=== PATIENT | female | born 1975 | race Caucasian/White ===

== ENCOUNTER 2016-07-24 08:28 | Emergency (ER) | payer MEDICARE, MEDICAID ==
[2016-07-24 08:49] VITALS: BP 138/92
--- NOTE | 2016-07-24 12:29 | UC ---
Lower Extremity/Ankle HPI - History of Current Complaint Chief Complaint: UCLowerExtremity Stated Complaint: KNEE COMPLAINT Time Seen by Provider: 07/24/16 11:27 Hx Last Menstrual Period: 07/01/16 - Allergies/Home Medications Allergies/Adverse Reactions: Allergies Allergy/AdvReac Type Severity Reaction Status Date / Time Penicillins Allergy Severe Airway Verified 07/24/16 08:50 Obstruction Azithromycin [From Zithromax] Allergy Nausea And Verified 07/24/16 08:50 Vomiting Lactose Intolerance (GI) Allergy Nausea And Verified 07/24/16 08:50 Vomiting Home Medications: Home Medications NK [No Home Medications Reported] 07/24/16 [History Confirmed 07/24/16] PMH/Surg Hx/FS Hx/Imm Hx Endocrine History Of: Denies: Diabetes, Thyroid Disease Cardiovascular History Of: Denies: Cardiac Disorders, Hypertension Respiratory History Of: Denies: COPD, Asthma GI/ History Of: Denies: Ulcer Neurological History Of: Reports: Migraine - ALLERGY INDUCED Psychological History Of: Reports: Depression - HX- PRIOR TO STROKE - Surgical History Surgical History: Yes Surgery Procedure, Year, and Place: TUBAL-2009. TUBES IN EARS-2014 - Family History Known Family History: Positive: None - Social History Alcohol Use: None Substance Use Type: None Smoking Status (MU): Current Every Day Smoker Type: Cigarettes Amount Used/How Often: 1 PPD Length of Time of Smoking/Using Tobacco: 25+ YEARS Have You Smoked in the Last Year: Yes When Did the Patient Quit Smoking/Using Tobacco: trying to quit currently Household Exposure Type: Cigarettes Physical Exam Vital Signs: Initial Vital Signs Temp 97.9 F 07/24/16 08:35 Pulse 92 07/24/16 08:35 Resp 20 07/24/16 08:35 BP 138/92 07/24/16 08:35 Pulse Ox 100 07/24/16 08:35
--- NOTE | 2016-07-24 12:31 | UC ---
Progress - Progress Note Progress Note: Patient came in today for chronic right leg pain. Due to an unusual number of medical emergencies that keep bumping the patient behind, the patient had a long wait and eventually left without me seeing her. I did go into see her, but after a few questions, a nurse came out to get me for a patient who possibly was having a stroke. When that patient was addressed, I heard from a nurse that the patient just could not stay any longer and left.
== END 2016-07-24 11:46 | disposition left against medical advice (07) ==
LOC: UCEAST 08:28
DX: M79.604 Pain in right leg (principal); G89.29 Other chronic pain; Z53.09 Procedure and treatment not carried out because of other contraindication

== ENCOUNTER 2016-07-25 07:06 | Emergency (ER) | payer MEDICARE, MEDICAID ==
[2016-07-25 07:18] VITALS: BP 138/75
--- NOTE | 2016-07-25 07:30 | UC ---
Knee Pain HPI - HPI Summary HPI Summary: PT HAS HAD RIGHT KNEE PAIN FOR YEARS. HAS NEVER SOUGHT MEDICAL ATTENTION FOR IT. NO PCP. STATES IT HAS BEEN WORSENING OVER THE PAST YEAR. HURTS TO WALK. PAIN IS MOSTLY MEDIAL AND POSTERIOR. NO CALF PAIN. NO NUMBNESS OR TINGLING. - History of Current Complaint Chief Complaint: UCLowerExtremity Stated Complaint: KNEE COMPLAINT Time Seen by Provider: 07/25/16 07:20 Hx Obtained From: Patient Hx Last Menstrual Period: 07/01/16 Onset/Duration: Gradual Onset - OVER YEARS, Still Present Severity Initially: Moderate Severity Currently: Moderate Pain Intensity: 5 Pain Scale Used: 0-10 Numeric Character: Sharp, Aching Aggravating Factor(s): Movement, Weight Bearing Alleviating Factor(s): Rest, Position Associated Signs And Symptoms: Positive: Swelling - Allergies/Home Medications Allergies/Adverse Reactions: Allergies Allergy/AdvReac Type Severity Reaction Status Date / Time Penicillins Allergy Severe Airway Verified 07/24/16 08:50 Obstruction Azithromycin [From Zithromax] Allergy Nausea And Verified 07/24/16 08:50 Vomiting Lactose Intolerance (GI) Allergy Nausea And Verified 07/24/16 08:50 Vomiting Home Medications: Home Medications Ibuprofen [Advil] 400 mg PO 07/25/16 [History] PMH/Surg Hx/FS Hx/Imm Hx Endocrine History Of: Denies: Diabetes, Thyroid Disease Cardiovascular History Of: Denies: Cardiac Disorders, Hypertension Respiratory History Of: Denies: COPD, Asthma GI/ History Of: Denies: Ulcer Neurological History Of: Reports: Migraine - ALLERGY INDUCED Psychological History Of: Reports: Depression - HX- PRIOR TO STROKE - Surgical History Surgical History: Yes Surgery Procedure, Year, and Place: TUBAL-2009. TUBES IN EARS-2014 - Family History Known Family History: Positive: Unknown - ADOPTED - Social History Alcohol Use: None Substance Use Type: None Smoking Status (MU): Current Every Day Smoker Type: Cigarettes Amount Used/How Often: 1 PPD Length of Time of Smoking/Using Tobacco: 25+ YEARS Have You Smoked in the Last Year: Yes When Did the Patient Quit Smoking/Using Tobacco: trying to quit currently Household Exposure Type: Cigarettes Review of Systems Constitutional: Negative Skin: Negative Respiratory: Negative Cardiovascular: Negative Gastrointestinal: Negative Musculoskeletal: Arthralgia, Decreased ROM, Edema All Other Systems Reviewed And Are Negative: Yes Physical Exam Triage Information Reviewed: Yes Appearance: Well-Appearing, No Pain Distress, Well-Nourished Vital Signs: Initial Vital Signs Temp 98.6 F 07/25/16 07:14 Pulse 83 07/25/16 07:14 Resp 18 07/25/16 07:14 BP 138/75 07/25/16 07:14 Pulse Ox 97 07/25/16 07:14 Vital Signs Reviewed: Yes Eyes: Positive: Conjunctiva Clear ENT: Positive: Hearing grossly normal Neck: Positive: Supple Respiratory: Positive: No respiratory distress, No accessory muscle use Cardiovascular: Positive: Pulses Normal Abdomen Description: Positive: Soft Musculoskeletal: Positive: ROM Limited @ - RIGHT KNEE, Edema @ - MILD EDEMA RIGHT KNEE, Other: - DIFFUSELY TENDER OVER RIGHT KNEE. MCL AND LCL INTACT TO STRESS TESTING. NEG LACHMANS. NEG DRAWERS SIGNS. NEG MCMURRAYS. DECREASED ROM ( FLEXION AND EXTENSION). NEG HOMANS. NO CALF TENDERNESS Neurological: Positive: Alert Psychological: Positive: Age Appropriate Behavior Skin: Negative: rashes Diagnostics - Radiology RIGHT KNEE XRAY Xray Interpretation: Positive (See Comments) - MINOR OSTEOARTHRITIS Radiology Interpretation Completed By: Radiologist Knee Pain Course/Dx - Course Course Of Treatment: XRAY GROSSLY UNREMARKABLE. KNEE IMMOBILIZER AND MATI DECLINED BY PT. FOLLOW-UP ORTHO. - Differential Dx/Diagnosis Differential Diagnosis/HQI/PQRI: Bursitis, Internal Derangement Of Knee, Patellofemoral Syndrome, Strain Provider Diagnoses: RIGHT KNEE PAIN/OSTEOARTHRITIS Discharge - Discharge Plan Condition: Stable Disposition: HOME Patient Education Materials: Knee Pain (ED) Referrals: Pancho Morales MD [Medical Doctor] - As Soon As Possible Additional Instructions: XRAY TODAY SHOWS SOME MILD OSTEOARTHRITIS. KNEE SLEEVE AND OTC MEDS NEEDED FOR COMFORT. SUSPECTED INTERNAL KNEE INJURY: The examiner of your injured knee suspects an internal injury to the cartilage or internal ligaments. This must be further investigated by an university extension specialist. The knee should be protected, ice packed, and elevated while awaiting your follow-up exam by the orthopedist. If there is severe swelling, severe pain, or any new symptoms while awaiting your exam, you should call the orthopedist. (If he/she is unavailable, call us or return for re-examination.) CALL THE NUMBER BELOW FOR ASSISTANCE IN ESTABLISHING WITH A PCP An additional resource available to assist in finding the appropriate physician for your health care needs is the [facility] ([place]). You may contact them by calling [phone].
--- NOTE | 2016-07-25 07:57 | RAD ---
INDICATION: Chronic right knee pain none COMPARISON: None TECHNIQUE: AP, lateral, tunnel, and sunrise were obtained. FINDINGS: There is minor tricompartmental spurring. There is minor patellofemoral joint space narrowing. There are no additional significant osteoarthritic findings. There are no acute bony findings. There is no significant joint effusion. IMPRESSION: MINOR OSTEOARTHRITIS. NO ACUTE FINDINGS.
== END 2016-07-25 08:30 | disposition home or self-care (01) ==
LOC: UCEAST 07:06
DX: M17.11 Unilateral primary osteoarthritis, right knee (principal); M25.561 Pain in right knee; F17.210 Nicotine dependence, cigarettes, uncomplicated
CPT/HCPCS: 99211; G0463

== ENCOUNTER 2016-07-28 08:17 | Emergency (ER) | payer MEDICARE, MEDICAID ==
[2016-07-28 08:28] VITALS: BP 146/71
--- NOTE | 2016-07-28 08:42 | UC ---
Respiratory Complaint HPI - HPI Summary HPI Summary: Cough, Chest COngestion, Chest Tightness, Subjective Fever, feels SOB, I get this 4 times a year - History of Current Complaint Chief Complaint: UCRespiratory Stated Complaint: CHEST CONGESTION Time Seen by Provider: 07/28/16 08:45 Hx Obtained From: Patient Hx Last Menstrual Period: 07/28/16 ?: No Onset/Duration: Sudden Onset, Lasting Days - 1, Still Present Timing: Constant Severity Initially: Moderate Severity Currently: Moderate Pain Intensity: 7 Pain Scale Used: 0-10 Numeric Character: Cough: Nonproductive Aggravating Factors: Exertion, Deep Breaths, Recumbent Position Alleviating Factors: Nothing - has not tried anything, uses an inhaler when she is prescribed one Associated Signs And Symptoms: Positive: Dyspnea, Fever - subjective, Pleuritic Chest Pain, URI - Allergies/Home Medications Allergies/Adverse Reactions: Allergies Allergy/AdvReac Type Severity Reaction Status Date / Time Penicillins Allergy Severe Airway Verified 07/24/16 08:50 Obstruction Azithromycin [From Zithromax] Allergy Nausea And Verified 07/24/16 08:50 Vomiting Lactose Intolerance (GI) Allergy Nausea And Verified 07/24/16 08:50 Vomiting Home Medications: Home Medications [id number] [Excedrin Extra Strength 250-250-65 mg] 2 tab PO Q6H 07/28/16 [History Confirmed 07/28/16] PMH/Surg Hx/FS Hx/Imm Hx Previously Healthy: No Endocrine History Of: Denies: Diabetes, Thyroid Disease Cardiovascular History Of: Denies: Cardiac Disorders, Hypertension Respiratory History Of: Reports: Bronchitis Denies: COPD, Asthma GI/ History Of: Denies: Ulcer Neurological History Of: Reports: Migraine - ALLERGY INDUCED Psychological History Of: Reports: Depression - HX- PRIOR TO STROKE - Surgical History Surgical History: Yes Surgery Procedure, Year, and Place: TUBAL-2009. TUBES IN EARS-2015 - Family History Known Family History: Positive: None, Unknown - ADOPTED - Social History Occupation: Disabled - due to back and hip pain/injury Lives: With Family Alcohol Use: None Substance Use Type: None Smoking Status (MU): Current Every Day Smoker Type: Cigarettes Amount Used/How Often: 1 PPD Length of Time of Smoking/Using Tobacco: 25+ YEARS Have You Smoked in the Last Year: Yes Household Exposure Type: Cigarettes Cessation Counseling: Counseled 3+Min - 10 Min - patient states her smokes more than she does, they are not ready to quit yet, information and support offered - Immunization History Most Recent Influenza Vaccination: "never gets it" Review of Systems Constitutional: Fever - subjective Skin: Negative Eyes: Negative ENT: Negative Respiratory: Shortness Of Breath, Cough Cardiovascular: Chest Pain Gastrointestinal: Negative Genitourinary: Negative Motor: Negative Neurovascular: Negative Musculoskeletal: Negative Neurological: Negative Psychological: Negative All Other Systems Reviewed And Are Negative: Yes Physical Exam Triage Information Reviewed: Yes Appearance: Well-Nourished, Ill-Appearing - mild illnes, appears older than stated age, Pain Distress Vital Signs: Initial Vital Signs Temp 97.6 F 07/28/16 08:24 Pulse 106 07/28/16 08:24 Resp 20 07/28/16 08:24 BP 146/71 07/28/16 08:24 Pulse Ox 98 07/28/16 08:24 Vital Signs Reviewed: Yes Eye Exam: Normal Eyes: Positive: Conjunctiva Clear ENT Exam: Normal ENT: Positive: Normal ENT inspection, Hearing grossly normal, Pharynx normal, TMs normal. Negative: Nasal congestion, Nasal drainage, Tonsillar swelling, Tonsillar exudate Neck exam: Normal Neck: Positive: Supple, Nontender, No Lymphadenopathy Respiratory: Positive: Chest non-tender, No accessory muscle use, Respiratory distress - mild, Decreased breath sounds, Wheezing Cardiovascular Exam: Other Cardiovascular: Positive: No Murmur, Pulses Normal, Brisk Capillary Refill, Tachycardia Musculoskeletal Exam: Normal Musculoskeletal: Positive: Strength Intact, ROM Intact, No Edema Neurological Exam: Normal Neurological: Positive: Alert Psychological Exam: Normal Skin Exam: Normal UC Diagnostic Evaluation - Laboratory O2 Sat by Pulse Oximetry: 98 Diagnostic Studies Comment: Flu(-) - Radiology Xray Interpretation: No Acute Changes Radiology Interpretation Completed By: Radiologist Re-Evaluation - Re-Evaluation First Eval Change: Improved - increase air movement, feels better, respirations easy Respiratory Course/Dx - Course Course Of Treatment: prednisone, albuterol, biaxin, quit smoking support and information, follow with pcp - Differential Dx/Diagnosis Differential Diagnosis/HQI/PQRI: Bronchitis, Exacerbation Of COPD, Influenza, Lower Resp Infection Provider Diagnoses: Acute exacerbation of bronchitis, Nicotine dependant Discharge - Discharge Plan Condition: Stable Disposition: HOME Prescriptions: Albuterol HFA INHALER* [Ventolin HFA Inhaler*] 2 puff INH Q4H PRN #1 mdi PRN Reason: cough, chest tightness Clarithromycin TAB* [Biaxin TAB*] 500 mg PO BID #20 tab Spacer/Aerosol-Holding Chamber [Aerochamber Plus] 1 mis .SEE ORDER SEE INSTRUCTIONS #1 mis predniSONE TAB* [Deltasone TAB*] 10 mg PO DAILY #20 tab Patient Education Materials: Clarithromycin (By mouth), How to Stop Smoking (ED ), Cigarette Smoking and Your Health (GEN), How to Use a Metered-Dose Inhaler ( ED), Acute Bronchitis (ED) Referrals: [facility] [place] [facility]IAN REFERRAL [Outside] - As Soon As Possible No Primary Care Phys,NOPCP [Primary Care Provider] - Additional Instructions: We have FREE assistance with smoking at [employer] at the [facility]---Shaina Trejo is the personal injury attorney
[2016-07-28] MEDS ORDERED: predniSONE TAB* 20 MG PO ONE (08:51)
[2016-07-28] MEDS ORDERED: Albuterol/Ipratropium NEB.SOL* Albuterol 2.5 MG/Ipratropium 0.5 MG 3 ML INH ONE (08:51)
--- NOTE | 2016-07-28 09:22 | RAD ---
HISTORY: Cough, shortness of breath, fever COMPARISONS: February 01, 2010 VIEWS: 2: Frontal dual-energy and lateral views of the chest. FINDINGS: CARDIOMEDIASTINAL SILHOUETTE: The cardiomediastinal silhouette is normal. JOSSIE: The jossie are normal. PLEURA: The costophrenic angles are sharp. No pleural abnormalities are noted. LUNG PARENCHYMA: The lungs are clear. ABDOMEN: The upper abdomen is clear. There is no subphrenic gas. BONES AND SOFT TISSUES: No bone or soft tissue abnormalities are noted. OTHER: None. IMPRESSION: NO ACTIVE CARDIOPULMONARY DISEASE.
== END 2016-07-28 09:51 | disposition home or self-care (01) ==
LOC: UCEAST 08:17
DX: J20.9 Acute bronchitis, unspecified (principal); F17.210 Nicotine dependence, cigarettes, uncomplicated
CPT/HCPCS: 71020; 87502; 99212; A9270-GY; G0463; J7512

== ENCOUNTER 2017-08-15 07:06 | Emergency (ER) | payer MEDICAID, MEDICARE ==
[2017-08-15 07:29] VITALS: BP 140/73
--- NOTE | 2017-08-15 09:15 | UC ---
Damari Monsivais Nilda, scribed for Suzanne Robison DO on 08/15/17 at 0759 . Ear Complaint HPI - HPI Summary HPI Summary: This patient is a 42 year old F presenting to [facility] [place] with a chief complaint of intermittent "electrical shooting pain" in right ear (both internal and external ) that radiates to her right forehead for the past 3 days. The patient rates the burning pain 10/10 in severity. Symptoms aggravated by loud noises, moving jaw (with clicking) and swallowing and alleviated by nothing. Patient reports nausea secondary to pain. Patient denies fever, chills, vomiting, sore throat, rhinorrhea, cough, rash, SOB, and CP. PMHx includes ear infections a couple years ago and chicken pox as a child. PSHx tubes in ears a couple years ago after ENT physician noted pt had very small Eustachian tubes that did not drain well, as well as scar tissue from allergy to chlorine when she was younger. She states she recently quit smoking for the past 5 months. - History of Current Complaint Stated Complaint: EAR PAIN Hx Obtained From: Patient Hx Last Menstrual Period: 07/28/16 Onset/Duration: Sudden Onset, Lasting Days, Still Present Severity Initially: Severe Severity Currently: Severe Pain Intensity: 10 Pain Scale Used: 0-10 Numeric Aggravating Factors: Other - loud noise, swallowing, moving jaw Alleviating Factors: Nothing Associated Signs/Symptoms: Negative: Discharge, Hearing Loss, Trauma to Ear, Swelling @, URI Symptoms - Allergies/Home Medications Allergies/Adverse Reactions: Allergies Allergy/AdvReac Type Severity Reaction Status Date / Time Penicillins Allergy Severe Airway Verified 08/15/17 07:44 Obstruction azithromycin Allergy Nausea And Verified 08/15/17 07:44 Vomiting lactose Allergy Nausea And Verified 08/15/17 07:44 Vomiting PMH/Surg Hx/FS Hx/Imm Hx Respiratory History: COPD Neurological History: CVA Psychological History: Depression - Surgical History Surgical History: Yes Surgery Procedure, Year, and Place: TUBAL LIGATION-2009. TUBES IN EARS-2014. WISDOM TEETH REMOVED - Family History Known Family History: Positive: None, Unknown - ADOPTED - Social History Alcohol Use: None Substance Use Type: None Smoking Status (MU): Current Every Day Smoker Type: Cigarettes Amount Used/How Often: 1 PPD Length of Time of Smoking/Using Tobacco: 25+ YEARS Have You Smoked in the Last Year: Yes When Did the Patient Quit Smoking/Using Tobacco: trying to quit currently Household Exposure Type: Cigarettes - Immunization History Most Recent Influenza Vaccination: "never gets it" Review of Systems Constitutional: Other - negative fever, chills Skin: Other - negative rash ENT: Ear Ache - right, inner and outer, Other - jaw clicks; negative sore throat , rhinorrhea Respiratory: Other - negative cough, SOB Cardiovascular: Other - negative CP Gastrointestinal: Nausea, Other - negative vomiting Neurological: Headache All Other Systems Reviewed And Are Negative: Yes Physical Exam Triage Information Reviewed: Yes Appearance: Well-Appearing, No Pain Distress, Well-Nourished Vital Signs Reviewed: Yes Eyes: Positive: Conjunctiva Clear. Negative: Discharge ENT: Positive: Hearing grossly normal, Other - Some redness noted in canal but no obvious vesicular lesions. TM is scarred. There are no tubes present. There is no erythema, dullness, or bulging.. Negative: Tonsillar swelling, Tonsillar exudate, Trismus, Muffled voice, Hoarse voice Dental: Positive: Other: - molars have all been pulled Neck exam: Normal Neck: Positive: Supple Respiratory: Positive: Lungs clear, Normal breath sounds, No respiratory distress, No accessory muscle use Cardiovascular: Positive: RRR, Pulses Normal Abdomen Description: Positive: Nontender, Soft. Negative: Distended, Guarding Bowel Sounds: Positive: Present Musculoskeletal Exam: Normal Neurological: Positive: Alert, Muscle Tone Normal Psychological Exam: Normal Psychological: Positive: Age Appropriate Behavior Skin Exam: Normal Skin: Positive: Other - Warm, Dry, Normal color Re-Evaluation - Re-Evaluation First Eval Re-Evaluation Time: 08:26 Comment: Reviewed D/C and treatment plan with pt. Ear Complaint Course/Dx - Course Course Of Treatment: This patient is a 42 year old F presenting to [facility] [place] with a chief complaint of intermittent "electrical shooting pain" in right ear (both internal and external) that radiates to her right forehead for the past 3 days. The patient rates the burning pain 10/10 in severity. Symptoms aggravated by loud noises, moving jaw (with clicking) and swallowing and alleviated by nothing. Patient reports nausea secondary to pain. Patient denies fever, chills , vomiting, sore throat, rhinorrhea, cough, rash, SOB, and CP. PMHx includes ear infections a couple years ago and chicken pox as a child. PSHx tubes in ears a couple years ago after ENT physician noted pt had very small Eustachian tubes that did not drain well, as well as scar tissue from allergy to chlorine when she was younger. She states she recently quit smoking for the past 5 months. Patient will be discharged with a diagnosis of shingles, a prescription for Vicodin and Valtrex, and follow up from ENT and osteopath. The patient is agreeable with this plan. Medications reviewed. Allergies reviewed. High blood pressure noted, likely due to pt's condition. - Differential Dx/Diagnosis Provider Diagnoses: Shingles Discharge - Discharge Plan Condition: Stable Disposition: HOME Prescriptions: HYDROcodone/ACETAMIN 5-325 MG* [[place] 5-325 TAB*] 1 tab PO Q6H PRN #14 tab MDD 4 TABS PRN Reason: Pain Valacyclovir HCl [Valacyclovir] 1 gm PO TID #21 tab Patient Education Materials: Shingles (ED) Referrals: Quique Ca MD [Medical Doctor] - 2 Days Rachele Aguilar NP [Nurse Practitioner] - 2 Days Additional Instructions: Your physical exam and history makes us suspicious for shingles. Because shingles in this part of the body can do damage to your hearing, we will treat you for shingles even though we are not yet sure of this diagnosis. Therefore, we will send in the following medications, Valtrex and Vicodin. There are, however, other possible diagnoses to consider including, trigeminal neuralgia, temporomandibular joint disorder, and dental problems. It is clear that you do have some dysfunction of your temporomandibular joint. We cannot be sure that this is the cause of your pain or if this dysfunction is just aggravating the pain. Either way, its in your best interest to have this problem addressed. For that reason we recommend that you see an osteopath. VALTREX: VALTREX is used to treat infections caused by the Herpes family of viruses. It's available as capsules or ointment. VALTREX is most effective if started at the first sign of the viral outbreak. It can decrease the severity and duration of symptoms. However, it doesn't eliminate the virus from the body completely. If you're prone to repeated outbreaks of herpes, you'll continue to have attacks. Take the pills for the full recommended course. Occasionally, mild nausea or headaches may occur. Call the doctor if you develop wheezing, itching, rash, shortness of breath , or lightheadedness. ORAL NARCOTIC MEDICATION: You have been given a prescription for pain control. This medication is a narcotic. It's best taken with food, as nausea can result if taken on an empty stomach. Don't operate machinery or drive within six hours of taking this medication. Do not combine this medicine with alcohol, or with any medication which can cause sedation (such as cold tablets or sleeping pills) unless you get permission from the physician. Narcotics tend to cause constipation. If possible, drink plenty of fluids and eat a diet high in fiber and fruits. YOU WOULD LIKELY BENEFIT FROM OSTEOPATHIC MANIPULATION. WE RECOMMEND THAT YOU FIND AN OSTEOPATHIC PHYSICIAN IN YOUR AREA WHO DOES INTEROSSEOUS, LYMPHATIC, MYOFACIAL AND VISCERAL WORK The documentation as recorded by the Damari day Nilda accurately reflects the service I personally performed and the decisions made by me, Suzanne Robison DO.
== END 2017-08-15 08:35 | disposition home or self-care (01) ==
LOC: UCEAST 07:06
DX: B02.9 Zoster without complications (principal); J44.9 Chronic obstructive pulmonary disease, unspecified; Z86.73 Personal history of transient ischemic attack (TIA), and cerebral infarction without residual deficits; F32.9 Major depressive disorder, single episode, unspecified; Z88.1 Allergy status to other antibiotic agents; Z88.0 Allergy status to penicillin; F17.210 Nicotine dependence, cigarettes, uncomplicated
CPT/HCPCS: 99212; G0463

== ENCOUNTER 2017-08-18 07:03 | Emergency (ER) | payer MEDICAID ==
[2017-08-18 07:19] VITALS: BP 125/77
--- NOTE | 2017-08-18 07:48 | UC ---
Ear Complaint HPI - HPI Summary HPI Summary: PT WITH 6 DAYS OF SHARP SHOOTING PAIN IN RIGHT EAR THAT RADIATES UP HER HEAD. WAS SEEN HERE AT 3 DAYS AGO AND DX WITH POSSIBLE SHINGLES AND TX WITH VALTREX AND HYDROCODONE. WAS ADVISED TO F/U WITH HER ENT. PT REPORTS THE ENT OFFICE WOULD NOT SCHEDULE HER WITHOUT A REFERRAL. PT STATES THE PAIN IS NOW WORSE AND SHE HAS RAZOR BLADE TYPE PAIN IN HER THROAT WHENEVER SHE SWALLOWS. NO EAR DRAINAGE OR CHANGE IN HEARING. NO FEVER OR URI SX. - History of Current Complaint Chief Complaint: UCEar Stated Complaint: EAR PAIN Time Seen by Provider: 08/18/17 07:19 Hx Obtained From: Patient Hx Last Menstrual Period: 08/08/2017 Onset/Duration: Sudden Onset, Lasting Days, Still Present Severity Initially: Moderate Severity Currently: Moderate Pain Intensity: 4 Pain Scale Used: 0-10 Numeric Aggravating Factors: Nothing Alleviating Factors: Nothing Associated Signs/Symptoms: Negative: Discharge, Hearing Loss, Foreign Body Sensation, Trauma to Ear, URI Symptoms - Allergies/Home Medications Allergies/Adverse Reactions: Allergies Allergy/AdvReac Type Severity Reaction Status Date / Time Penicillins Allergy Severe Airway Verified 08/18/17 07:19 Obstruction azithromycin Allergy Nausea And Verified 08/18/17 07:19 Vomiting lactose Allergy Nausea And Verified 08/18/17 07:19 Vomiting PMH/Surg Hx/FS Hx/Imm Hx Neurological History: Migraine - Surgical History Surgical History: Yes Surgery Procedure, Year, and Place: TUBAL LIGATION-2009. TUBES IN EARS-2014. WISDOM TEETH REMOVED - Family History Known Family History: Positive: Unknown - ADOPTED - Social History Alcohol Use: None Substance Use Type: None Smoking Status (MU): Former Smoker Type: Cigarettes Amount Used/How Often: 1 PPD Length of Time of Smoking/Using Tobacco: 25+ YEARS Have You Smoked in the Last Year: Yes When Did the Patient Quit Smoking/Using Tobacco: 5 months ago Household Exposure Type: Cigarettes - Immunization History Most Recent Influenza Vaccination: "never gets it" Review of Systems Constitutional: Negative ENT: Sore Throat, Ear Ache Respiratory: Negative Cardiovascular: Negative Gastrointestinal: Negative Neurological: Headache All Other Systems Reviewed And Are Negative: Yes Physical Exam Triage Information Reviewed: Yes Appearance: Well-Nourished, Pain Distress - MOD Vital Signs: Initial Vital Signs Temp 97.7 F 08/18/17 07:12 Pulse 77 08/18/17 07:12 Resp 18 08/18/17 07:12 BP 125/77 08/18/17 07:12 Pulse Ox 98 08/18/17 07:12 Vital Signs Reviewed: Yes Eyes: Positive: Conjunctiva Clear ENT: Positive: Hearing grossly normal, Pharynx normal, TMs normal, Other - PAIN WITH TRACTION ON PINNA AND PRESSURE ON TRAGUS. RIGHT EAC ERYTHEMATOUS AND SLIGHTLY SWOLLEN. MILDLY TENDER RIGHT TMJ Neck: Positive: Supple, Nontender, No Lymphadenopathy Respiratory Exam: Normal Cardiovascular Exam: Normal Abdomen Description: Positive: Soft Musculoskeletal: Positive: No Edema Neurological: Positive: Alert Psychological: Positive: Age Appropriate Behavior Skin: Negative: rashes Ear Complaint Course/Dx - Differential Dx/Diagnosis Provider Diagnoses: RIGHT OTITIS EXTERNA Discharge - Discharge Plan Condition: Stable Disposition: HOME Prescriptions: Ciproflox/Dexameth OTIC.SUSP* [Ciprodex Otic*] 4 drop RIGHT EAR BID #1 bottle Patient Education Materials: Otitis Externa (ED) Referrals: Quique Ca MD [Medical Doctor] - 1 Day Additional Instructions: YOUR EAR CANAL IS RED AND SLIGHTLY SWOLLEN. WILL COVER FOR EXTERNAL OTITIS WITH ANTIBIOTIC/STEROID DROPS. CONTINUE THE VALTREX PRESCRIBED FOR POSSIBLE SHINGLES AND F/U WITH ENT [facility] FOR FURTHER EVALUATION. REFERRAL FORM HAS BEEN FAXED. GO TO THE ER WITHOUT FAIL IF YOUR AIRWAY BECOMES COMPROMISED OR IF YOUR TONGUE OR THROAT START TO SWELL OR ANY OTHER CONCERNING SYMPTOMS DEVELOP.
== END 2017-08-18 07:53 | disposition home or self-care (01) ==
LOC: UCEAST 07:03
DX: H60.91 Unspecified otitis externa, right ear (principal); Z87.891 Personal history of nicotine dependence
CPT/HCPCS: 99212; G0463

== ENCOUNTER 2017-09-04 07:57 | Emergency (ER) | payer MEDICARE, MEDICAID ==
[2017-09-04 08:16] VITALS: BP 121/66
--- OUTSIDE RECORDS SUMMARY | 2017-09-04 08:16 | XMS REPORT ---
:1975 External Reference #:[id number] Author Organization [facility] Address [address] [place] [address] Phone [phone] Care Team Providers Name Role Phone Hood New M.D. Primary Care Physician Unavailable Payers Type Date Identification Numbers Payment Provider Subscriber Medicare Primary Policy Number: [id number] Medicare-[facility] Govn Myah Hinson [employer]VS PayID: [id number] [address] [place] [address] [place] Policy Number: [id number] Medicaid/C Myah Hinson Group Name: 2 1 Medicare Primary PayID: [id number] [address] [place] [address] Problems Date Description Provider Status Onset: 05/21/2015 Conductive hearing loss, bilateral Quique Ca MD Active Onset: 05/21/2015 Bilateral chronic serous otitis Quique Ca MD Active Onset: 09/06/2015 Otorrhea Quique Ca MD Active Onset: 03/13/2016 Chronic rhinitis Quique Ca MD Active Onset: 03/13/2016 Hypertrophy of nasal turbinates Quique aC MD Active Onset: 03/13/2016 Other specified disorders of Eustachian Quique Ca MD Active tube, bilateral Onset: 03/26/2017 Tympanosclerosis, bilateral Quique Ca MD Active Family History Date Family Member(s) Problem(s) Comments General Adopted Social History Type Date Description Comments Occupation Disabled Cigarette Use Former Cigarette Smoker Pipe Never Smoked A Pipe Smokeless Tobacco Never Used Smokeless Tobacco ETOH Use Currently occasionally consumes alcohol Smoking Patient is a former smoker Allergies, Adverse Reactions, Alerts Date Description Reaction Status Severity Comments 04/05/2015 Penicillins active 04/05/2015 Zithromax active Medications Medication Date Status Form Strength Qnty SIG Indications Ordering Provider Fluticasone 04/27/ Active Suspension 50mcg/Act 16unit use 2 Quique Propionate 2017 s sprays in [place] ty , MD perez once daily Valacyclovir / Active Tablets 1gm Take 1 Unknown HCL 0000 Tablet By Mouth 3 Times Daily Hydrocodone-Tommy / Active Tablets 5-325mg Take 1 Unknown taminophen 0000 Tablet By Mouth Every 6 Hours as Needed For Pain Fluticasone 12/19/ Hx Suspension 50mcg/Act 16gm 2 puffs H69.83 Quique Propionate 2017 - both [place] 03/25/ kassandra , MD Barrera once a day Fluticasone 03/13/ Hx Suspension 50mcg/Act 1units 2 puffs J31.0 Quique Propionate 2016 - both [place] 03/25/ sides , 2017 once a day Ciprofloxacin 09/05/ Hx Solution 0.3% 2.500m 3 drops H92.11 Quique HCL 2016 - l right ear [place] 03/25/ twice a , 2016 day Flonase Allergy 04/05/ Hx Suspension 50mcg/Act 1units 2 puffs H65.23 Quique Relief 2014 - both side [place]up[place] 05/20/ once per , 2014 day Lamisil / Hx Packet 125mg as Darlow, 0000 - directed Hood 03/25/ Dulce 2016 Ciprodex / Hx Suspension 0.3-0.1% 4 drops Unknown 0000 - in right 08/18/ ear twice 2018 a day Vital Signs Date Vital Result Comment 08/18/2017 Weight 199.00 lb Weight in kg's 90.266 Height 64 inches 5'4" Height in cm's 162.6 cm BMI (Body Mass Index) 34.2 kg/m2 03/26/2017 BP Systolic 150 mmHg BP Diastolic 94 mmHg Heart Rate 86 /min Respiratory Rate 17 /min Weight 199.00 lb Weight in kg's 90.266 Height 64 inches 5'4" Height in cm's 162.6 cm BMI (Body Mass Index) 34.2 kg/m2 12/19/2016 BP Systolic 172 mmHg BP Diastolic 82 mmHg Heart Rate 85 /min Respiratory Rate 17 /min Weight 199.00 lb Weight in kg's 90.266 Height 64 inches 5'4" Height in cm's 162.6 cm BMI (Body Mass Index) 34.2 kg/m2 06/12/2016 Weight 199.00 lb Weight in kg's 90.266 Height 64 inches 5'4" Height in cm's 162.6 cm BMI (Body Mass Index) 34.2 kg/m2 03/13/2016 BP Systolic 131 mmHg BP Diastolic 87 mmHg Heart Rate 76 /min Respiratory Rate 17 /min Weight 199.00 lb Weight in kg's 90.266 Height 64 inches 5'4" Height in cm's 162.6 cm BMI (Body Mass Index) 34.2 kg/m2 01/10/2016 Respiratory Rate 17 /min Weight 199.00 lb Weight in kg's 90.266 Height 64 inches 5'4" Height in cm's 162.6 cm BMI (Body Mass Index) 34.2 kg/m2 05/21/2015 BP Systolic 119 mmHg BP Diastolic 93 mmHg Heart Rate 89 /min Respiratory Rate 17 /min Weight 199.00 lb Weight in kg's 90.266 Height 64 inches 5'4" Height in cm's 162.6 cm BMI (Body Mass Index) 34.2 kg/m2 04/05/2015 BP Systolic 129 mmHg BP Diastolic 96 mmHg Heart Rate 80 /min Respiratory Rate 17 /min Weight 199.00 lb Weight in kg's 90.266 Height 64 inches 5'4" Height in cm's 162.6 cm BMI (Body Mass Index) 34.2 kg/m2 Results Description No Information Procedures Date CPT Code Description Status 08/18/2017 68262 Binocular Microscopy Completed 01/10/2016 02060 Tympanometry Completed 01/10/2016 08176 Comprehensive Audiogram Completed 06/06/2015 20302 Tympanostomy W/Tube, Under General Anes. Completed 05/21/2015 09965 Tympanometry Completed 05/21/2015 75107 Comprehensive Audiogram Completed 04/05/2015 55466 Tympanometry Completed 04/05/2015 98101 Comprehensive Audiogram Completed Encounters Type Date Location Provider CPT E/M Dx Office Visit 08/18/2017 9:15a Stacie,After 07/06/07 Rikki Cruz 85131 H92.01 Dulce Garcia B00.2 Office Visit 03/26/2017 8:30a Stacie,After 07/06/07 [place] [address] J31.0 H69.83 H74.03 Office Visit 12/19/2016 11:30a Stacie,After 07/06/07 [place] [address] H69.83 Office Visit 06/12/2016 8:30a Stacie,After 07/06/07 [place] [address] H69.83 Office Visit 03/13/2016 9:45a Stacie,After 07/06/07 [place] [address] H69.83 J31.0 J34.3 Office Visit 01/10/2016 10:00a Stacie,After 07/06/07 [place] [address] H65.23 H90.0 Office Visit 09/06/2015 1:30p Stacie,After 07/06/07 [place] [address] H65.23 H92.11 Office Visit 07/12/2015 10:00a Stacie,After 07/06/07 [place] [address] H65.23 Office Visit 05/21/2015 9:30a Stacie,After 07/06/07 [place] [address] H90.0 H65.23 Office Visit 04/05/2015 10:45a Stacie,After 07/06/07 [place] [address] H90.0 H65.23 Plan of Care 08/18/2017 - Rikki Garcia M.D.H92.01 Otalgia, right earComments:The patient's right ear has been hurting with shooting pain into her head. It is also exacerbated with swallowing and hitting the right oropharynx. She has a small ulceration in the right tonsillar fossa that I think is a viral ulcer. She felt better after this was sprayed with Cetacaine. She has already been started on Valacyclovir. She does not have to use the drops that were prescribed. I have recommended she get a numbing lozenge or spray with Benzocaine to use as needed from the pharmacy.B00.2 Herpesviral gingivostomatitis and pharyngotonsillitis
--- NOTE | 2017-09-04 08:54 | UC ---
Respiratory Complaint HPI - HPI Summary HPI Summary: 4 DAYS AGO PT WAS HELPING WITH SOME HOUSE RENOVATIONS BY MOVING INSULATION MATERIAL. SHEETROCK WAS ALSO BEING CUT AND MOVED IN THE AREA. PT WAS NOT WEARING A MASK AND STATES SHE WAS BREATHING IN ALL THE CIRCULATING PARTICULATE MATTER. SINCE THEN HAS HAD A ST AND COUGH PRODUCTIVE OF THICK GREEN PHLEGM. FEELS SHE CAN'T CLEAR HER THROAT. VOICE IS HOARSE. FEELS A BIT SOB AND WHEEZY AT TIMES. SX GETTING WORSE. NO FEVER. - History of Current Complaint Chief Complaint: UCGeneralIllness Stated Complaint: CHEST CONGESTION Time Seen by Provider: 09/04/17 08:29 Hx Obtained From: Patient Hx Last Menstrual Period: 08/08/2017 Onset/Duration: Gradual Onset, Lasting Days, Still Present Timing: Constant Severity Initially: Moderate Severity Currently: Moderate Pain Intensity: 5 Pain Scale Used: 0-10 Numeric Character: Cough: Productive Aggravating Factors: Nothing Alleviating Factors: Nothing Associated Signs And Symptoms: Positive: Dyspnea, Wheezing. Negative: Fever, Chills, Pleuritic Chest Pain - Allergies/Home Medications Allergies/Adverse Reactions: Allergies Allergy/AdvReac Type Severity Reaction Status Date / Time Penicillins Allergy Severe Airway Verified 09/04/17 08:02 Obstruction azithromycin Allergy Nausea And Verified 09/04/17 08:02 Vomiting lactose Allergy Nausea And Verified 09/04/17 08:02 Vomiting PMH/Surg Hx/FS Hx/Imm Hx Neurological History: Migraine - Surgical History Surgical History: Yes Surgery Procedure, Year, and Place: TUBAL LIGATION-2009. TUBES IN EARS-2014. WISDOM TEETH REMOVED - Family History Known Family History: Positive: None, Unknown - ADOPTED - Social History Alcohol Use: None Substance Use Type: None Smoking Status (MU): Former Smoker Type: Cigarettes Amount Used/How Often: 1 PPD Length of Time of Smoking/Using Tobacco: 25+ YEARS Have You Smoked in the Last Year: Yes When Did the Patient Quit Smoking/Using Tobacco: 5 months ago Household Exposure Type: Cigarettes - Immunization History Most Recent Influenza Vaccination: "never gets it" Review of Systems Constitutional: Negative ENT: Sore Throat Respiratory: Shortness Of Breath, Cough Cardiovascular: Negative Gastrointestinal: Negative All Other Systems Reviewed And Are Negative: Yes Physical Exam Triage Information Reviewed: Yes Appearance: Well-Appearing, No Pain Distress, Well-Nourished Vital Signs: Initial Vital Signs Temp 98.4 F 09/04/17 08:06 Pulse 93 09/04/17 08:06 Resp 20 09/04/17 08:06 BP 121/66 09/04/17 08:06 Pulse Ox 99 09/04/17 08:06 Vital Signs Reviewed: Yes Eyes: Positive: Conjunctiva Clear ENT: Positive: Hearing grossly normal, Pharynx normal, TMs normal, Hoarse voice Neck: Positive: Supple, Nontender, No Lymphadenopathy Respiratory Exam: Normal Cardiovascular Exam: Normal Abdomen Description: Positive: Soft Musculoskeletal: Positive: No Edema Neurological: Positive: Alert Psychological: Positive: Age Appropriate Behavior Skin: Negative: rashes UC Diagnostic Evaluation - Laboratory O2 Sat by Pulse Oximetry: 99 - Radiology Xray Interpretation: No Acute Changes - CXR Radiology Interpretation Completed By: Radiologist Respiratory Course/Dx - Differential Dx/Diagnosis Provider Diagnoses: BRONCHITIS - SUSPECT INHALED AIRWAY IRRITANT Discharge - Discharge Plan Condition: Stable Disposition: HOME Prescriptions: Clarithromycin [Clarithromycin ER] 1,000 mg PO DAILY #10 tab.er.24h Patient Education Materials: Acute Bronchitis (ED) Referrals: Mehreen Gregory MD [Medical Doctor] - 1 Week Hood New MD [Primary Care Provider] - If Needed Additional Instructions: CHEST XRAY UNREMARKABLE. CONCERN FOR POSSIBLE AIRWAY IRRITATION FROM INHALED PARTICULATE MATTER. WILL GIVE ANTIBIOTIC TO COVER FOR ANY POSSIBLE INFECTIOUS PROCESS BUT WOULD RECOMMEND FOLLOW-UP WITH PULMONOLOGY FOR FURTHER EVAL AND TREATMENT. GO TO ER WITHOUT FAIL IF YOU DEVELOP WORSENING SHORTNESS OF BREATH, CHEST PAIN, NAUSEA, SWEATS, DIZZINESS OR ANY OTHER CONCERNING SYMPTOMS.
--- NOTE | 2017-09-04 09:04 | RAD ---
HISTORY: Cough, inhalational exposure COMPARISONS: July 28, 2016 VIEWS: 4: Frontal dual-energy and lateral views of the chest. FINDINGS: CARDIOMEDIASTINAL SILHOUETTE: The cardiomediastinal silhouette is normal. JOSSIE: The jossie are normal. PLEURA: The costophrenic angles are sharp. No pleural abnormalities are noted. LUNG PARENCHYMA: The lungs are clear. ABDOMEN: The upper abdomen is clear. There is no subphrenic gas. BONES AND SOFT TISSUES: No bone or soft tissue abnormalities are noted. OTHER: None. IMPRESSION: NO ACTIVE CARDIOPULMONARY DISEASE.
== END 2017-09-04 09:20 | disposition home or self-care (01) ==
LOC: UCEAST 07:57
DX: J40 Bronchitis, not specified as acute or chronic (principal); Z88.1 Allergy status to other antibiotic agents; Z88.0 Allergy status to penicillin; G43.909 Migraine, unspecified, not intractable, without status migrainosus; Z87.891 Personal history of nicotine dependence
CPT/HCPCS: 71046; 99212; G0463

== ENCOUNTER 2018-11-30 08:44 | Emergency (ER) | payer MEDICARE, MEDICAID ==
[2018-11-30 09:12] VITALS: BP 122/88
--- NOTE | 2018-11-30 10:17 | UC ---
General HPI - HPI Summary HPI Summary: Patient has had sinus congestion for nearly over a week. No fever. Good PO. States she has significant congestion, headache and for the past three days, right ear pain with tenderness along the neck. Has not taken any antipyretics or NSAIDS. Requesting antibiotics today. Has been taking zyrtec with no relief. No cough. No vomiting or diarrhea. MEdS: reviewed - History of Current Complaint Chief Complaint: UCRespiratory Stated Complaint: SINUS ISSUE EAR PAIN Time Seen by Provider: 11/30/18 09:57 Hx Last Menstrual Period: 2 days ago Pain Intensity: 10 - Allergy/Home Medications Allergies/Adverse Reactions: Allergies Allergy/AdvReac Type Severity Reaction Status Date / Time Penicillins Allergy Severe Airway Verified 11/30/18 09:07 Obstruction azithromycin Allergy Nausea And Verified 11/30/18 09:07 Vomiting lactose Allergy Nausea And Verified 11/30/18 09:07 Vomiting PMH/Surg Hx/FS Hx/Imm Hx Previously Healthy: Yes - Surgical History Surgical History: Yes Surgery Procedure, Year, and Place: TUBAL LIGATION-2009. TUBES IN EARS-2014. WISDOM TEETH REMOVED - Family History Known Family History: Positive: None, Unknown - ADOPTED - Social History Alcohol Use: None Substance Use Type: None Smoking Status (MU): Former Smoker Type: Cigarettes Amount Used/How Often: 1 PPD Length of Time of Smoking/Using Tobacco: 25+ YEARS Have You Smoked in the Last Year: Yes When Did the Patient Quit Smoking/Using Tobacco: 5 months ago Household Exposure Type: Cigarettes - Immunization History Most Recent Influenza Vaccination: "never gets it" Review of Systems All Other Systems Reviewed And Are Negative: Yes ENT: Positive: Ear Ache, Sinus Congestion Physical Exam Triage Information Reviewed: Yes Appearance: Well-Appearing Vital Signs: Initial Vital Signs Temp 98.5 F 11/30/18 09:07 Pulse 91 11/30/18 09:07 Resp 18 11/30/18 09:07 BP 122/88 11/30/18 09:07 Pulse Ox 96 11/30/18 09:07 ENT: Positive: Pharynx normal, Nasal congestion, Other - TM's bilateral clear fluid, more prominent and bulging in left. No opacities or erythema Neck: Positive: Tenderness @ - along anterior auricle and cervical chain Respiratory: Positive: Lungs clear, Normal breath sounds Cardiovascular: Positive: RRR, No Murmur Course/Dx - Course Course Of Treatment: This is a 43 yr old with right ear pain and congestion Assessment Nontoxic appearing Serous otitis media with seasonal allergies DIscussed no role for antibiotics in this situation. Plan REcommend continue zyrtec Can use sudafed as well for decongestant Continue netti pot Start Flonase as prescribed REcommmend ibuprofen 800 mg every 6-8 hours as needed for pain If symptoms persist or worsen, recommend follow up with your PCP - Diagnoses Provider Diagnosis: Serous otitis media, Seasonal allergies Discharge - Sign-Out/Discharge Documenting (check all that apply): Patient Departure All imaging exams completed and their final reports reviewed: No Studies - Discharge Plan Condition: Fair Disposition: HOME Prescriptions: Fluticasone NASAL SPRAY 50MCG* [Flonase NASAL SPRAY 50MCG*] 2 spray BOTH NARES DAILY #1 btl Patient Education Materials: Allergies (ED), Serous Otitis Media (ED) Referrals: No Primary Care Phys,NOPCP [Primary Care Provider] - Additional Instructions: REcommend continue zyrtec Can use sudafed as well for decongestant Continue netti pot Start Flonase as prescribed REcommmend ibuprofen 800 mg every 6-8 hours as needed for pain If symptoms persist or worsen, recommend follow up with your PCP - Billing Disposition and Condition Condition: FAIR Disposition: Home
== END 2018-11-30 10:29 | disposition home or self-care (01) ==
LOC: UCEAST 08:44
DX: J30.2 Other seasonal allergic rhinitis (principal); H65.91 Unspecified nonsuppurative otitis media, right ear; Z88.0 Allergy status to penicillin; Z88.1 Allergy status to other antibiotic agents; Z91.011 Allergy to milk products; Z87.891 Personal history of nicotine dependence
CPT/HCPCS: 99212; G0463